=== PATIENT | female | born 1980 ===

== ENCOUNTER 2017-11-02 10:12 | Emergency (ER) | payer OTHER ==
[~2017-11-02] VITALS: Ht 162.6 cm; Wt 89.8 kg
[2017-11-02 11:00] VITALS: BP 153/90; TEMP 98
== END 2017-11-02 11:05 | disposition home or self-care (01) ==
LOC: ED 10:12
DX: S61.011A Laceration without foreign body of right thumb without damage to nail, initial encounter (principal); S61.001A Unspecified open wound of right thumb without damage to nail, initial encounter; W29.0XXA Contact with powered kitchen appliance, initial encounter; Y92.89 Other specified places as the place of occurrence of the external cause
CPT/HCPCS: 36415; 96365; 96375; 99284; J0696; J2060; J2175; J2405